=== PATIENT | male | born 1940 | race Caucasian/White ===

== ENCOUNTER → 2016-08-08 | Outpatient (CLI) | payer MEDICARE, OTHER ==
[~2016-08-08] MED LIST: ACCUPRIL5 MG PO; ADULT LOW DOSE81 MG PO; FLOMAX 0.4 MG0.4 MG PO; NEURONTIN 300300 MG PO; NORCO 10-325 T1 EACH PO; PRILOSEC OTC20 MG PO; PROVENTIL HFA 61 INH INH; PULMICORT FLE180 MCG INH; ZOCOR20 MG PO
[2016-08-08 09:02] LABS: BUN/CREATININE RATIO 24 (0-10)
== END ==
LOC: LAB 07:37
PROVIDERS: Emergency Medicine
DX: I10 Essential (primary) hypertension (principal); E78.2 Mixed hyperlipidemia; E55.9 Vitamin D deficiency, unspecified; M1A.9XX0 Chronic gout, unspecified, without tophus (tophi)
CPT/HCPCS: 36415; 80053; 84550

== ENCOUNTER 2020-03-17 12:44 | Emergency (ER) | payer MEDICARE, OTHER ==
[~2020-03-17 12:44] MED LIST changes: +AUGMENTIN 875-1 EACH PO; +NORCO 5-325 TA1 EACH PO; +NORCO 7.5-3251 EACH PO; +ZANAFLEX4 MG PO
[2020-03-17 14:12] LABS: HEMOGLOBIN 14.6 gm/dl (14.0-17.5); RED BLOOD COUNT 4.89 M/UL (4.20-5.50); WHITE BLOOD COUNT 8.3 K/UL (4.5-11.0)
== END 2020-03-17 18:45 | disposition home or self-care (01) ==
LOC: ER1 12:44
PROVIDERS: Emergency Medicine
DX: K56.41 Fecal impaction (principal); K62.89 Other specified diseases of anus and rectum; K62.5 Hemorrhage of anus and rectum
CPT/HCPCS: 36415; 74018; 80053; 83690; 85025; 96374; 96375; 96376; 99284; J1170; J2270; J2405; Q9965